=== PATIENT | male | born 1980 | race Caucasian/White ===

== ENCOUNTER → 2022-02-20 | Day surgery (SDC) | payer OTHER ==
[~2022-02-20] MED LIST: Heparin 1,000 UNITS/ML VIAL ONE
== END ==
LOC: EEVIPCON 08:24 → SPEC 08:24 → EDBD 08:24
PROC: 02HV33Z Insertion of Infusion Device into Superior Vena Cava, Percutaneous Approach (ICD-10-PCS; principal; 2022-02-20)
DX: L08.9 Local infection of the skin and subcutaneous tissue, unspecified (principal); Z79.2 Long term (current) use of antibiotics; Z88.8 Allergy status to other drugs, medicaments and biological substances
CPT/HCPCS: 36569; C1751; J1644